=== PATIENT | male | born 1950 | race Caucasian/White ===

== ENCOUNTER 2024-02-04 12:03 | Outpatient (RCR) | payer MEDICARE, OTHER | END 2024-02-05 | disposition home or self-care (01) | LOC: COL.CR | DX: Z48.812 Encounter for surgical aftercare following surgery on the circulatory system (principal); Z95.1 Presence of aortocoronary bypass graft ==

== ENCOUNTER 2024-02-08 11:54 | Day surgery (SDC) | payer MEDICARE, OTHER ==
[~2024-02-08] VITALS: Ht 188 cm; Wt 98.0 kg
[2024-02-08 12:04] VITALS: BP 109/73; PULSE 100; TEMP 98.6
[2024-02-08] MEDS ORDERED: NS 1,000 ML IV SCH (12:15)
[2024-02-08] MEDS ORDERED: Hydrocortisone 1% Cream 30 GM TUBE TP PRN (12:15)
[2024-02-08 13:39] LABS: THYROID STIMULATING HORMONE 2.881 uIU/mL (0.350-4.940)
[2024-02-08 14:00] LABS: INR 2.2 (0.8-3.0)
[2024-02-08] MEDS ORDERED: Lidocaine PF 2% (20 MG/ML) 5 ML VIAL ONE (14:15)
[2024-02-08] MEDS ORDERED: ePHEDrine 50 MG/ML VIAL ONE (14:17)
[2024-02-08] MEDS ORDERED: LIPITOR 80MG80 MG PO (14:32)
[2024-02-08] MEDS ORDERED: CORDARONE200 MG/TAB PO (14:32)
[2024-02-08] MEDS ORDERED: ELIQUIS 5MG PO (14:32)
[2024-02-08] MEDS ORDERED: PLAVIX 75MG TAB75 MG PO (14:33)
[2024-02-08] MEDS ORDERED: LASIX 40MG TABL40 MG PO (14:33)
[2024-02-08] MEDS ORDERED: PROTONIX 40MG T40 MG PO (14:34)
[2024-02-08] MEDS ORDERED: TOPROL XL 25MG25 MG PO (14:34)
--- NOTE | 2024-02-08 14:43 | NUR ---
Doctor Jhaveri completed electronic discharge orders before medication reconciliation was completed. Dr Jhaveri looked over patient's paper medication list and stated that he will not be making any changes to his prescription medications at this time and that he can continue to take everything as normal.
[2024-02-08 14:55] VITALS: BP 108/66; PULSE 76
[2024-02-08 15:00] VITALS: BP 106/69; PULSE 70
--- NOTE | 2024-02-08 15:01 | NUR ---
Please see moderate sedation assessment for record of LUCNIDA/CV with Dr. Gallego. Pt awake and alert now, maintaining sinus rhythm rate 60's-80's with occasional multifocal PVCs. [employer]vest is back on patient and turned on. Pt reports feels like he is breathing "easier" since procedure, although he does reports feels like he has "blurry" vision in rt eye, but stated it improved with dimming of the "bright lights". Grand daughter Joey back to room. call light in reach. BS report and handoff of care to Erin CANALES.
[2024-02-08 15:15] VITALS: BP 107/81; PULSE 76
[2024-02-08 15:30] VITALS: BP 114/70; PULSE 70
[2024-02-08 15:45] VITALS: BP 115/71; PULSE 70
--- NOTE | 2024-02-08 16:23 | NUR ---
PT TOLERATED RECOVERY PERIOD WELL. VS REMAINED WTHIN NORMAL LIMITS AND PT FREE FROM ACUTE CONCERNS AND COMPLAINTS. IV DISCONTINUED AND PT ASSISTED TO MAIN LOBBY VIA WHEELCHAIR UPON DISCHARGE. PT VERBALIZED UNDERSTANDING OF DISCHARGE INSTRUCTIONS.
== END 2024-02-08 16:00 | disposition home or self-care (01) ==
LOC: COL.CAR 11:54
PROVIDERS: Internal Medicine Interventional Cardiology
DX: I48.92 Unspecified atrial flutter (principal); I50.20 Unspecified systolic (congestive) heart failure; I33.0 Acute and subacute infective endocarditis; Z79.01 Long term (current) use of anticoagulants; Z95.1 Presence of aortocoronary bypass graft; Z79.899 Other long term (current) drug therapy
CPT/HCPCS: J2704; J7030

== ENCOUNTER → 2024-06-11 | Outpatient (CLI) | payer MEDICARE, OTHER ==
[~2024-06-11] MED LIST: CORDARONE200 MG/TAB PO; ELIQUIS 5MG PO; LASIX 40MG TABL40 MG PO; LIPITOR 80MG80 MG PO; PLAVIX 75MG TAB75 MG PO; PROTONIX 40MG T40 MG PO; TOPROL XL 25MG25 MG PO
== END ==
LOC: COL.RAD 12:17
DX: I50.20 Unspecified systolic (congestive) heart failure (principal); Z95.810 Presence of automatic (implantable) cardiac defibrillator